=== PATIENT | male | born 1955 | race Caucasian/White ===

== ENCOUNTER → 2017-07-31 | Outpatient (CLI) | payer BC, OTHER | LOC: FIMAGING 15:52 | PROVIDERS: ATTEND Physician Assistant Surgical | DX: M99.73 Connective tissue and disc stenosis of intervertebral foramina of lumbar region (principal); M43.16 Spondylolisthesis, lumbar region; M89.38 Hypertrophy of bone, other site; M51.36 Other intervertebral disc degeneration, lumbar region ==